=== PATIENT | male | born 1995 | race Caucasian/White ===

== ENCOUNTER 2020-05-20 13:13 | Emergency (ER) | payer OTHER ==
[2020-05-20 13:18] VITALS: BP 116/77; PULSE 11; TEMP 97.8; BMI 29.8
[2020-05-20] MEDS ORDERED: KETOROLAC TROMETHAMINE 30 MG/1 ML VIAL IM ONE (13:35)
[2020-05-20] MEDS ORDERED: METHOCARBAMOL 500 MG TABLET PO ONE (13:35)
[2020-05-20] MEDS ORDERED: KETOROLAC TROMETHAMINE 30 MG/1 ML VIAL ONE (13:42)
[2020-05-20] MEDS ORDERED: METHOCARBAMOL 500 MG TABLET ONE (13:42)
== END 2020-05-20 14:05 | disposition home or self-care (01) ==
LOC: JERFT 13:13
PROC: 3E0233Z Introduction of Anti-inflammatory into Muscle, Percutaneous Approach (ICD-10-PCS; principal; 2020-05-20)
DX: M25.512 Pain in left shoulder (principal); M79.642 Pain in left hand
CPT/HCPCS: 73030-TC-LT-FY; 73130-TC-LT-FY; 99284-25